=== PATIENT | male | born 1975 | race Caucasian/White ===

== ENCOUNTER 2023-01-10 11:58 | Emergency (ER) | payer BC, SELFPAY ==
[2023-01-10 12:22] VITALS: BP 130/91; PULSE 107; RESP 18; O2SAT 96
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
== END 2023-01-10 12:55 | disposition home or self-care (01) ==
PROVIDERS: Emergency Provider Registered Nurse
DX: H92.01 Otalgia, right ear (principal); F32.A Depression, unspecified
CPT/HCPCS: 99211; G0463

== ENCOUNTER 2023-02-11 08:22 | Outpatient (CLI) | payer BC, SELFPAY | END 2023-02-11 08:23 | disposition home or self-care (01) | PROVIDERS: Visit Provider Otolaryngology | DX: S09.20XA Traumatic rupture of unspecified ear drum, initial encounter (principal); X58.XXXA Exposure to other specified factors, initial encounter | CPT/HCPCS: 92557; 92567 ==